=== PATIENT | female | born 1975 | race Caucasian/White ===

== ENCOUNTER 2024-02-09 23:20 | Emergency (ER) | payer MEDICAID ==
[~2024-02-09] VITALS: Ht 152.4 cm; Wt 80.7 kg
[2024-02-09 23:30] VITALS: BP_SYST 126; PULSE 90; RESP 19; TEMP 97.9; O2SAT 99
[2024-02-10] MEDS: IPRATROPIUM/ALBUTEROL SULFATE 3 ML AMPUL.NEB (DUONEB) INH ONE (00:54)
[2024-02-10] MEDS: KETOROLAC TROMETHAMINE 30 MG VIAL IM ONE (01:05)
[2024-02-10] MEDS: methylPREDNISolone SOD SUCC/PF 62.5 MG/ML VIAL IM ONE (01:07)
[2024-02-10] MEDS: guaiFENesin/DEXTROMETHORPHAN 10 ML UDC PO ONE (01:11)
[2024-02-10 01:43] LABS: INFLUENZA TYPE A Negative (NEGATIVE); INFLUENZA TYPE B NEGATIVE (NEGATIVE)
[2024-02-10] MEDS ORDERED: GUAI5SYR PO (02:24)
[2024-02-10] MEDS ORDERED: ZIT250 PO (02:24)
[2024-02-10] MEDS ORDERED: AUG875 PO (02:24)
[2024-02-10] MEDS ORDERED: ALBMDI INH (02:24)
[2024-02-10 02:50] VITALS: BP_SYST 147; PULSE 87; RESP 18; TEMP 98.4; O2SAT 97
== END 2024-02-10 02:50 | disposition home or self-care (01) ==
LOC: SED 23:20
DX: J18.8 Other pneumonia, unspecified organism (principal); J40 Bronchitis, not specified as acute or chronic; Z20.822 Contact with and (suspected) exposure to COVID-19
CPT/HCPCS: 99285; 87426; 36415; 93005; 87804 ×2; 71045; 94640; 81025; 96372; J1885; J2930

== ENCOUNTER 2024-06-01 17:42 | Emergency (ER) | payer MEDICAID ==
[~2024-06-01] VITALS: Ht 170.2 cm; Wt 81.6 kg
[~2024-06-01 17:42] MED LIST: ALBMDI INH; AUG875 PO; GUAI5SYR PO; ZIT250 PO
[2024-06-01 18:04] VITALS: BP_SYST 124; PULSE 82; RESP 18; TEMP 99.6; O2SAT 99
[2024-06-01] MEDS: DEXAMETHASONE SOD PHOSPHATE 10 MG/ML VIAL IM ONE (18:20)
[2024-06-01 18:28] LABS: BASOPHILS % (AUTO) 0.3 % (0.0-2.0); EOSINOPHILS # (AUTO) 0.5 K/uL (0.0-0.4); EOSINOPHILS % (AUTO) 5.3 % (0.0-4.0); HEMATOCRIT 26.2 % (36-48); HEMOGLOBIN 8.5 g/dL (12.0-16.0); LYMPHOCYTES # (AUTO) 2.1 K/uL (1.0-5.5); LYMPHOCYTES % (AUTO) 23.4 % (20.5-51.5); MEAN CORPUSCULAR HEMOGLOBIN 22 pg (27-31); MEAN CORPUSCULAR HGB CONC 32 % (32-36); MEAN CORPUSCULAR VOLUME 66 fL (79.0-98.0); MONOCYTES # (AUTO) 0.8 K/uL (0.0-1.0); MONOCYTES % (AUTO) 9.3 % (1.7-9.3); NEUTROPHILS # (AUTO) 5.5 K/uL (1.8-7.7); NEUTROPHILS % (AUTO) 61.7 % (40.0-70.0); PLATELET COUNT (AUTO) 311 K/uL (130-430); RED BLOOD CELL COUNT(AUTO) 3.95 MIL/uL (4.2-6.2); RED CELL DISTRIBUTION WIDTH 17.7 % (9.0-15.0); WHITE BLOOD COUNT (AUTO) 8.9 K/uL (4.8-10.8)
[2024-06-01 18:52] LABS: CALCIUM 8.1 mg/dL (8.4-11.0); CREATININE 0.65 mg/dL (0.55-1.30); POTASSIUM 3.8 mmol/L (3.5-5.1)
[2024-06-01] MEDS: ONDANSETRON HCL 4 MG/2 ML VIAL IVP ONE (19:07)
[2024-06-01] MEDS: KETOROLAC TROMETHAMINE 30 MG VIAL IVP ONE (19:07)
[2024-06-01 20:02] LABS: ANISOCYTOSIS 2+; HYPOCHROMASIA 1+; POLYCHROMASIA 2+
[2024-06-01 20:03] LABS: OVALOCYTES FEW
[2024-06-01] MEDS ORDERED: NIRM1TAB9 PO (20:39)
[2024-06-01 21:25] VITALS: BP_SYST 113; PULSE 67; RESP 20; TEMP 97.6; O2SAT 99
== END 2024-06-01 21:20 | disposition home or self-care (01) ==
LOC: SED 17:42
DX: U07.1 COVID-19 (principal); Z79.899 Other long term (current) drug therapy; Z79.2 Long term (current) use of antibiotics
CPT/HCPCS: 99284; 96374; 71045; 96375; 80048; 85025; 36415; 96372; J1100; J1885; J2405

== ENCOUNTER 2024-06-02 23:54 | Emergency (ER) | payer MEDICAID ==
[~2024-06-02] VITALS: Ht 157.5 cm; Wt 81.6 kg
[~2024-06-02 23:54] MED LIST changes: +NIRM1TAB9 PO
[2024-06-03 00:05] VITALS: BP_SYST 123; PULSE 73; RESP 19; TEMP 98.1; O2SAT 100
[2024-06-03] MEDS: KETOROLAC TROMETHAMINE 30 MG VIAL IVP ONE (01:41)
[2024-06-03] MEDS: NACL 0.9% 1,000 ML IV ONE (01:41)
[2024-06-03] MEDS ORDERED: PRED20TA PO (01:48)
[2024-06-03] MEDS ORDERED: IBUP-1971 PO (01:48)
[2024-06-03 03:01] VITALS: BP_SYST 123; PULSE 73; RESP 19; TEMP 98.1; O2SAT 100
== END 2024-06-03 02:50 | disposition home or self-care (01) ==
LOC: SED 23:54
DX: U07.1 COVID-19 (principal); R05.9 Cough, unspecified; R03.0 Elevated blood-pressure reading, without diagnosis of hypertension; Z98.890 Other specified postprocedural states; Z79.899 Other long term (current) drug therapy; Z79.2 Long term (current) use of antibiotics
CPT/HCPCS: 99283; 96374; 96361; J1885; J7030